=== PATIENT | male | born 1955 | race Two or more races ===

== ENCOUNTER 2020-09-07 08:22 | Day surgery (SDC) | payer OTHER ==
[~2020-09-07] VITALS: Ht 162.6 cm; Wt 67.1 kg
[2020-09-07] MEDS ORDERED: PLEASE ENTER HEIGHT AND WEIGHT MC SCH (09:00)
[2020-09-07] MEDS ORDERED: PLEASE ENTER ALLERGIES MC SCH (09:00)
[2020-09-07] MEDS ORDERED: LACTATED RINGERS 1,000 ML IV SCH (09:00)
[2020-09-07] MEDS ORDERED: CHLORHEXIDINE 15 ML UDC MM ONE (09:00)
[2020-09-07 09:05] VITALS: BP 175/92
[2020-09-07] MEDS ORDERED: FENTANYL PF 250 MCG/5ML ONE (09:20)
[2020-09-07] MEDS ORDERED: MIDAZOLAM 1 MG/ML, 2ML ONE (09:20)
[2020-09-07] MEDS ORDERED: TAMS-11 PO (09:35)
[2020-09-07] MEDS ORDERED: INSU100V3 SQ (09:35)
[2020-09-07] MEDS ORDERED: DICL35CA3 PO (09:35)
[2020-09-07] MEDS ORDERED: EMPA10TA PO (09:35)
[2020-09-07] MEDS ORDERED: CARV3.1212 PO (09:35)
[2020-09-07] MEDS ORDERED: ATOR40TA78 PO (09:35)
[2020-09-07] MEDS ORDERED: DULA0.75 SQ (09:35)
[2020-09-07] MEDS ORDERED: GABA600T7 PO (09:35)
[2020-09-07] MEDS ORDERED: LISI1TAB20 PO (09:35)
[2020-09-07] MEDS ORDERED: ASPI81TA45 PO (09:35)
[2020-09-07] MEDS ORDERED: METF500T17 PO (09:35)
[2020-09-07] MEDS ORDERED: BUPIVACAINE/PF 0.5% ONE (09:50)
[2020-09-07 09:53] LABS: ALANINE AMINOTRANSFERASE 26 U/L (12-78); ALBUMIN 3.3 g/dL (3.4-5.0); ANION GAP 6 mmol/L (5-15); CALCIUM 8.8 mg/dL (8.5-10.1); CHLORIDE 108 mmol/L (98-107); CREATININE 1.29 mg/dL (0.7-1.3)
[2020-09-07] MEDS ORDERED: CLINDAMYCIN 150 MG/ML, 6ML ONE ×2 (09:53→10:17)
[2020-09-07] MEDS ORDERED: BUPIVACAINE/PF 0.25% ONE (09:53)
[2020-09-07] MEDS ORDERED: EPINEPHRINE TOPICAL SOLN 1 MG/ML, 30ML ONE (09:53)
[2020-09-07] MEDS ORDERED: EPINEPHRINE 1 MG/ML, 1ML ONE (09:53)
[2020-09-07 09:55] LABS: ALKALINE PHOSPHATASE 77 U/L (45-117); BILIRUBIN,TOTAL 0.3 mg/dL (0.2-1.0); TOTAL PROTEIN 7.2 g/dL (6.4-8.2)
[2020-09-07] MEDS ORDERED: DEXAMETHASONE 4 MG/ML, 1ML ONE (10:17)
[2020-09-07] MEDS ORDERED: CEFAZOLIN 1,000 MG ONE ×2 (10:25)
[2020-09-07] MEDS ORDERED: PROPOFOL 10 MG/ML, 20ML ONE (10:38)
[2020-09-07] MEDS ORDERED: ROCURONIUM 10MG/ML,5ML ONE (12:03)
[2020-09-07] MEDS ORDERED: ONDANSETRON 2MG/ML, 2ML ONE (12:03)
[2020-09-07] MEDS ORDERED: hydrALAzine 20 MG/ML, 1ML ONE (12:08)
[2020-09-07] MEDS ORDERED: hydrALAzine 20 MG/ML, 1ML IV PRN (12:30)
[2020-09-07] MEDS ORDERED: ONDANSETRON 2MG/ML, 2ML IVPush PRN (12:30)
[2020-09-07] MEDS ORDERED: HYDROmorphone 1 MG/ML, 1ML INJ IVPush PRN (12:30)
[2020-09-07] MEDS ORDERED: OXYcodone 5 MG/5 ML ORAL.SOL UDC PO PRN (12:30)
[2020-09-07] MEDS ORDERED: LABETALOL 5MG/ML, 20ML IV PRN (12:30)
[2020-09-07] MEDS ORDERED: FENTANYL PF 100 MCG/2ML IV PRN (12:30)
[2020-09-07] MEDS ORDERED: MEPERIDINE/PF 25MG/0.5ML IVPush PRN (12:30)
[2020-09-07] MEDS ORDERED: ACETAMINOPHEN 325 MG TABLET PO PRN (12:30)
[2020-09-07] MEDS ORDERED: PROMETHAZINE 25 MG/ML, 1ML IVPush PRN (12:30)
== END 2020-09-07 14:30 | disposition home or self-care (01) ==
LOC: OUT 08:22
PROVIDERS: ATTEND Orthopaedic Surgery
DX: S46.011A Strain of muscle(s) and tendon(s) of the rotator cuff of right shoulder, initial encounter (principal); M75.21 Bicipital tendinitis, right shoulder; S43.491A Other sprain of right shoulder joint, initial encounter; M25.711 Osteophyte, right shoulder; S42.251A Displaced fracture of greater tuberosity of right humerus, initial encounter for closed fracture; M25.811 Other specified joint disorders, right shoulder; M94.211 Chondromalacia, right shoulder; M24.611 Ankylosis, right shoulder; M65.811 Other synovitis and tenosynovitis, right shoulder; E11.9 Type 2 diabetes mellitus without complications; I10 Essential (primary) hypertension; Z79.4 Long term (current) use of insulin; Z79.899 Other long term (current) drug therapy; W17.89XA Other fall from one level to another, initial encounter; G89.18 Other acute postprocedural pain; Y93.89 Activity, other specified; Y92.89 Other specified places as the place of occurrence of the external cause; Y99.8 Other external cause status; Z20.828 Contact with and (suspected) exposure to other viral communicable diseases
CPT/HCPCS: 23430; 29823; 29826; 29827; 36415; 64415; 80053; 87635; 93005; C1713; J0171; J0360; J0690; J1100; J2250; J2405; J2704; J3010; J7120